=== PATIENT | male | born 1960 | race Caucasian/White ===

== ENCOUNTER 2025-04-25 11:11 | Outpatient (OUT) | payer OTHER, SELFPAY ==
--- NOTE | 2025-04-25 11:13 | ECG_ITS ---
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 Measurements Intervals [place] Rate: 73 P: 57 LA: 162 QRS: -11 QRSD: 149 T: 20 QT: 393 QTc: 436 Interpretive Statements SINUS RHYTHM RIGHT BUNDLE BRANCH BLOCK [120+ ms QRS DURATION, UPRIGHT V1, 40+ ms S IN I/aVL/V4/V5/V6] Abnormal ECG No previous ECG available for comparison Electronically Signed On 04-25-2025 18:04:37 EDT by SHANICE MAGALLANES M.D.
--- OUTSIDE RECORDS SUMMARY | 2025-04-25 11:13 | XMS_ITS | Clinical Summary ---
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 Name Role Phone Unavailable Primary Care Provider Unavailabl e Allergies No known active allergies Medications Hospital, Clinic, or Other Facility Administered Medication Ordered Dose Route Frequency Start Date End Date Status iopamidol (Isovue-300) 61 % injection 30 mLIndications:Gross hematuria 30 mL IV Once in imaging 03/29/2025 03/29/2025 Ended Encounters Date Type Department Care Team Description 03/29/2025 1:45 PM EDT Ancillary Procedure [facility] [address] [place] [id number] Gross hematuria 03/29/2025 Travel from Last 3 Months Social History Tobacco Use Types Packs/Day Years Used Date Smoking Tobacco: Never Assessed Sex and Gender Information Value Date Recorded Sex Assigned at Not on file Legal Sex Male 7:05 PM EDT Gender Identity Not on file Sexual Orientation Not on file Last Filed Vital Signs Vital Sign Reading Time Taken Comments Blood Pressure 184/102 06/18/2020 12:00 PM EDT Pulse - - Temperature - - Respiratory Rate - - Oxygen Saturation - - Inhaled Oxygen Concentration - - Weight 71.7 kg (158 lb) 08/30/2020 12:00 PM EDT Height 175.3 cm (5' 9 ) 08/30/2020 12:00 PM EDT Body Mass Index 23.33 08/30/2020 12:00 PM EDT Plan of Treatment Health Maintenance Due Date Last Done Comments CT Colonography 1960 Colonoscopy 1960 FIT 1960 FOBT 1960 Sigmoidoscopy 1960 Pneumococcal Vaccine: 65+ Ye ars (1 of 1 - PCV) 2008 Influenza Vaccine (Season Ended) 2025 Colorectal Cancer Screening 08/03/2026 FIT-DNA 08/03/2026 08/03/2023, 06/03/2020 Procedures Procedure Name Priority Date/Time Associated Diagnosis Comments CT UROGRAM W AND WO IV CONTRAST Routine 03/29/2025 2:00 PM EDT Gross hematuria from Last 3 Months Results * CT UROGRAM W AND WO IV CONTRAST (03/29/2025 2:00 PM EDT) Anatomical Region Laterality Modality Ureter, Upper urinary tract Comp uted Tomography 03/30/2025 11:3 9 AM EDT Impressions 03/30/2025 11:47 AM EDT Tiny nonobstructing right renal calculi. 8 mm urinary bladder calculus. Significant enlargement of the prostate gland. Incidental 7 mm hypodense lesion of the body of the pancreas. MRI of the pancreas with contrast with MRCP recommended to further evaluate. Colonic diverticulosis without diverticulitis. ELECTRONICALLY SIGNED BY: DO Jose Ramires 03/30/2025 11:47 AM EDT EXAM: CT UROGRAM W AND WO IV CONTRAST History: Hematuria. Technique: Multiple contiguous axial images were obtained of the abdomen and pelvis from the level of the lung bases through the ischial tuberosities without and with contrast. Multiplanar reformats were obtained. Delayed images were obtained. All CT scans at this facility use dose modulation, iterative reconstruction, and/or weight based dosing when appropriate to reduce radiation dose to as low as reasonably achievable. Comparison: 10/18/2020 radiograph Mild Findings: 2 mm right middle lobe nodule. 7 mm hypodense lesion of the body of the pancreas. The liver, gallbladder, stomach, spleen, and adrenal glands are within normal limits. The kidneys enhance uniformly. There are a few tiny nonobstructing right renal calculi. No right-sided hydronephrosis. No left-sided urinary tract calculi. 1.2 cm and 1 cm simple left renal cysts. Suggest this case the urinary bladder is well distended and contains a 9 mm stone. The prostate is significantly enlarged measuring approximately 6.7 x 5.8 x 6 cm. Abdominal aorta is nonaneurysmal. No retroperitoneal or abdominal/pelvic lymphadenopathy. No small bowel obstruction. Colonic diverticuli are identified. No overt colonic mass or pericolonic inflammation. The appendix contains a tiny appendicolith but is otherwise unremarkable. No free fluid or free air. No acute osseous abnormality. Degenerative changes of the spine. Grade 1-2 anterolisthesis of L5 on S1 secondary to bilateral L5 spondylolysis. Procedure Note Bill Burns DO - 03/30/2025 EXAM: CT UROGRAM W AND WO IV CONTRAST History: Hematuria. Technique: Multiple contiguous axial images were obtained of the abdomenand pelvis from the level of the lung bases through the ischialtuberosities without and with contrast. Multiplanar reformats wereobtained. Delayed images were obtained. All CT scans at this facility use dose modulation, iterativereconstruction, and/or weight based dosing when appropriate to reduceradiation dose to as low as reasonably achievable. Comparison: 10/18/2020 radiograph Mild Findings: 2 mm right middle lobe nodule. 7 mm hypodense lesion of the body of the pancreas. The liver, gallbladder,stomach, spleen, and adrenal glands are within normal limits. The kidneys enhance uniformly. There are a few tiny nonobstructing rightrenal calculi. No right-sided hydronephrosis. No left-sided urinary tractcalculi. 1.2 cm and 1 cm simple left renal cysts. Suggest this case theurinary bladder is well distended and contains a 9 mm stone. The prostateis significantly enlarged measuring approximately 6.7 x 5.8 x 6 cm. Abdominal aorta is nonaneurysmal. No retroperitoneal or abdominal/pelviclymphadenopathy. No small bowel obstruction. Colonic diverticuli are identified. No overtcolonic mass or pericolonic inflammation. The appendix contains a tinyappendicolith but is otherwise unremarkable. No free fluid or free air. No acute osseous abnormality. Degenerative changes of the spine. Grade 1-2anterolisthesis of L5 on S1 secondary to bilateral L5 spondylolysis. IMPRESSION: Tiny nonobstructing right renal calculi. 8 mm urinary bladder calculus. Significant enlargement of the prostate gland. Incidental 7 mm hypodense lesion of the body of the pancreas. MRI of thepancreas with contrast with MRCP recommended to further evaluate. Colonic diverticulosis without diverticulitis. ELECTRONICALLY SIGNED BY: Bill Burns DO Jim England MD IMG CT PROCEDURES Final Resu lt from Last 3 Months Insurance [employer]
--- OUTSIDE RECORDS SUMMARY | 2025-04-25 11:13 | XMS_ITS | Clinical Summary ---
Author Organization [facility] Address [address] [address] [facility] 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
--- OUTSIDE RECORDS SUMMARY | 2025-04-25 11:14 | XMS_ITS | Clinical Summary ---
Author Organization [facility] Address [address] [place] [address] Care Team Providers Care Gear Grinder Name Role Phone Unavailable Primary Care Provider Unavailabl e Social History Tobacco Use Types Packs/Day Years Used Date Smoking Tobacco: Never Assessed Sex and Gender Information Value Date Recorded Sex Assigned at Not on file Legal Sex Male 9:20 AM EDT Gender Identity Not on file Sexual Orientation Not on file Plan of Treatment Not on file Insurance
--- NOTE | 2025-04-25 11:38 | PM.PRESUREVA ---
History of Present Illness History of Present Illness Chief complaint: Bladder Stone Narrative: Patient presents for presurgical testing. Please see HPI from Dr. England dated April 17, 2025. Review of Systems ROS Narrative Please see ROS from Dr. England dated April 17, 2025. [facility] Medical History (Updated 04/25/25 @ 11:35 by Kyra Vazquez NP) Irregular heart beat ?I49.9 - Cardiac arrhythmia, unspecified (ICD-10) Kidney stones ?N20.0 - Calculus of kidney (ICD-10) Heartburn ?R12 - Heartburn (ICD-10) Tibia/fibula fracture ?S82.209A - Unspecified fracture of shaft of unspecified tibia, initial encounter for closed fracture (ICD-10) ?S82.409A - Unspecified fracture of shaft of unspecified fibula, initial encounter for closed fracture (ICD-10) Hypertension ?I10 - Essential (primary) hypertension (ICD-10) Gross hematuria ?R31.0 - Gross hematuria (ICD-10) Renal cyst ?N28.1 - Cyst of kidney, acquired (ICD-10) Elevated PSA ?R97.20 - Elevated prostate specific antigen [PSA] (ICD-10) BPH (benign prostatic hyperplasia) ?N40.0 - Benign prostatic hyperplasia without lower urinary tract symptoms (ICD-10) Bladder stone ?N21.0 - Calculus in bladder (ICD-10) Surgical History (Updated 04/25/25 @ 11:27 by Kyra Vazquez NP) History of esophagogastroduodenoscopy (EGD) ?Z98.890 - Other specified postprocedural states (ICD-10) History of colonoscopy ?Z98.890 - Other specified postprocedural states (ICD-10) S/P cystoscopy ?Z98.890 - Other specified postprocedural states (ICD-10) History of vasectomy ?Z98.52 - Vasectomy status (ICD-10) History of hernia repair ?Z98.890 - Other specified postprocedural states (ICD-10) ?Z87.19 - Personal history of other diseases of the digestive system (ICD-10) History of cataract extraction ?Z98.49 - Cataract extraction status, unspecified eye (ICD-10) Hx of prostate biopsy ?Z98.890 - Other specified postprocedural states (ICD-10) History of open reduction and internal fixation (ORIF) procedure ?Z98.890 - Other specified postprocedural states (ICD-10) Family History (Updated 04/25/25 @ 11:27 by Kyra Vazquez NP) Other Family history of cancer Family history of diabetes mellitus Family history of hypertension Social History (Updated 04/25/25 @ 11:22 by Kyra Vazquez NP) Within the past year, how often did you have a drink containing alcohol: monthly or less Smoking status: Never smoker Non-prescribed substance use: denies use 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 Highest level of school completed/degree received: high school graduate Meds Home Medications and Allergies Home Medications ?Medication ?Instructions ?Recorded ?Confirmed ?Type amlodipine 10 mg tablet 10 mg PO DAILY 04/25/25 04/25/25 History Allergies Allergy/AdvReac Type Severity Reaction Status Date / Time Penicillins Allergy Unknown Verified 04/25/25 11:21 Exam Narrative Exam Narrative: Constitutional: Awake, alert, comfortable, well-appearing, nontoxic, interactive, vital signs as charted Head: Normocephalic, atraumatic Neck: Supple, normal appearance, normal range of motion, no meningeal signs, no lymphadenopathy Respiratory: No respiratory distress, breath sounds clear Cardiovascular: Regular rate and rhythm, strong and regular heart tones Abdomen: Nontender, normal bowel sounds, soft, no CVA tenderness Musculoskeletal: Normal gait, no swelling or edema Skin: No rashes or induration, no lesions, only visible skin inspected Neuro: No neurological deficits, normal sensation Psychiatric: Oriented ?3, normal affect Assessment and Plan Assessment and Plan (1) Bladder stone: Plan Cystoscopy, litholapaxy scheduled with Dr. England May 03, 2025.
[2025-04-25 11:45] LABS: Basophils Percent Auto 0.4 % (0.2-2.0); Eosinophils Percent Auto 0.6 % (0.9-7.0); Hematocrit 43.7 % (42.0-54.0); Hemoglobin 15.2 g/dL (14.0-18.0); Immature Granulocytes Abs Auto 0.01 10^3/uL (0.00-0.03); Immature Granulocytes Pct Auto 0.1 % (0.0-0.5); Lymphocytes Absolute Auto 1.1 10^3/uL (1.2-3.8); Lymphocytes Percent Auto 15.6 % (20.5-60.0); Mean Corpuscular HGB Conc 34.8 g/dL (29.9-35.2); Mean Corpuscular Hemoglobin 30.2 pg (25.9-34.0); Mean Corpuscular Volume 86.9 fL (80.0-94.0); Monocytes Absolute Auto 0.5 10^3/uL (0.3-0.8); Monocytes Percent Auto 7.6 % (1.7-12.0); Neutrophils Absolute Auto 5.3 10^3/uL (1.4-6.5); Neutrophils Percent Auto 75.7 % (43.0-75.0); Platelet Count 204 10^3/uL (150-450); Red Blood Count 5.03 10^6/uL (4.70-6.10); Red Cell Distribution Width 12.8 % (11.0-15.0); White Blood Count 7.1 10^3/uL (4.0-11.0)
[2025-04-25 12:02] LABS: Anion Gap 12.7; Calcium 8.9 mg/dL (8.5-10.1); Carbon Dioxide 27.2 mmol/L (21.0-32.0); Chloride 103 mmol/L (98-107); Estimated GFR (African America >60 (>=60 mL/min/1.73m^2); Estimated GFR (Non-African Ame >60 (>=60 mL/min/1.73m^2); Glucose 96 mg/dL (74-106); Potassium 3.9 mmol/L (3.5-5.1); Sodium 139 mmol/L (136-145)
[2025-04-25 12:18] LABS: INR 0.97; Partial Thromboplastin Time 29.8 sec (22.3-36.2); Prothrombin Time 10.3 sec (9.0-11.6)
== END 2025-04-25 11:12 | disposition home or self-care (01) ==
LOC: PST 11:12
PROVIDERS: PCP Family Medicine; Visit Provider Urology
DX: Z01.810 Encounter for preprocedural cardiovascular examination (principal); Z01.812 Encounter for preprocedural laboratory examination; Z01.818 Encounter for other preprocedural examination; N40.1 Benign prostatic hyperplasia with lower urinary tract symptoms
CPT/HCPCS: 80048; 85025; 85610; 85730; 93005; G0463

== ENCOUNTER 2025-05-03 09:29 | Day surgery (SDC) | payer OTHER, SELFPAY ==
[2025-04-25 11:33] VITALS: BP 137/85; PULSE 84; TEMP 36.3; O2SAT 99; BMI 24.1
[2025-05-03] VITALS (10 sets, daily range): BP systolic 92–138; BP diastolic 55–91; PULSE 52–75; TEMP 36.4–36.6; O2SAT 91–100; BMI 23.0
[2025-05-03] MEDS: LACTATED RINGER'S SOLUTION 1,000 ML 50 ML IV (09:50)
[2025-05-03] MEDS: CIPROFLOXACIN 400 MG/200 ML D5W PREMIX 200 MG IV (12:02)
--- NOTE | 2025-05-03 12:38 | PM.URSON ---
Urology Surgery Operative Note Operative Note Procedure Date: 05/03/25 Time Out Performed: yes Pre-op Diagnosis: Bladder calculus Post-op Diagnosis: same as pre-op Procedures performed: 1. Cystoscopy litholapaxy for a 2 to 3 cm bladder calculus Anesthesia: General-LMA Primary Surgeon: Jim England Complications: None Estimated blood loss (mL): 5 Findings: Large bladder calculus Specimens: Bladder calculus pieces as Drains: None Indications for Procedures: This gentleman has an enlarged prostate but no urinary symptoms. Hematuria led to a workup which revealed a 2 to 3 cm bladder calculus. He now presents for cystoscopy litholapaxy. He has signed an informed consent after risks were explained. Detailed description of Procedure: The patient was brought to the operating room and placed on the operating room table in the supine position. SCDs were placed on the lower extremities and turned on and functioning during the entire case. Timeout was done by all parties in the room. We all agreed upon the patient's identification and the planned procedures for this patient. Genn. anesthesia was then administered. The patient was then repositioned into the modified dorsal lithotomy position. All pressure points were satisfactorily padded. Genitalia were sterilely prepped and draped in usual fashion. I started by passing a 22 [place] Olympus cystoscope per urethra and into the bladder. Anterior urethra was normal. Prostatic urethra revealed trilobar obstruction. Panendoscopy in the bladder showed low-grade trabeculation. There were no tumors. A large bladder calculus was noted on the base. I passed a 1000 Angstrom laser fiber through the scope and used the thulium laser at 40 W continuously in the fragmentation mode. I made contact with the stone and began fragmenting the large stone. I fragmented down to multiple small pieces and tons of dust and sand. I then used the Ilich evacuator to get all of the pieces out along with the sand. Reinspection with the scope revealed no evidence of stone remaining in the bladder. The ureteral orifices were untouched and effluxing clear urine. There was no bleeding. As the scope was brought out 1 could see that the median lobe of the prostatic urethra was oozing ever so slightly. The scope was then removed after the bladder was drained of its contents. He was then transferred to a [facility] bed and wheeled to PACU in stable condition.
== END 2025-05-03 14:15 | disposition home or self-care (01) ==
LOC: SURGOUT 09:30
PROVIDERS: PCP Family Medicine; Visit Provider Urology
PROC: (CPT 910; principal; 2025-05-03 10:30)
DX: N21.0 Calculus in bladder (principal); R97.20 Elevated prostate specific antigen [PSA]; N28.1 Cyst of kidney, acquired; I10 Essential (primary) hypertension; N32.89 Other specified disorders of bladder; R31.9 Hematuria, unspecified; Z98.52 Vasectomy status; K21.9 Gastro-esophageal reflux disease without esophagitis
CPT/HCPCS: 52318; 36415; 82365; 99999; J0744